=== PATIENT | male | born 1960 | race Caucasian/White ===

== ENCOUNTER 2022-07-01 11:24 | Day surgery (SDC) | payer OTHER, SELFPAY ==
[2022-07-01 11:52] VITALS: BMI 27.8
[2022-07-01 12:07] VITALS: BP 168/99; PULSE 77; RESP 17; TEMP 36; O2SAT 97
--- NOTE | 2022-07-01 12:52 | P.CONAN_ITS ---
HPI - Anesthesia Eval Consult details Narrative: 61 yr oldheavy smoker and etoh ( 12 pack a day on weekends) for upper endo plus colon PMFSH Past Medical History Medical History (Updated 06/28/22 @ 14:28 by Irma Poon RN) GERD (gastroesophageal reflux disease) Family History Family history of problems with anesthesia: No Surgical History Surgical History (Updated 06/28/22 @ 14:28 by Irma Poon RN) History of appendectomy History of surgery on lower extremity History of Problems with Anesthesia: No Social History Social History Patient Tobacco Use Status: Current everyday Tobacco user Cigarette Packs Per Day: 1 Cigarettes Per Day: 20.0 Use of substances other than those prescribed or required for medical reasons: No Advance Directives: No Advance Directives Information Provided: Yes Meds Allergies Allergy/AdvReac Type Severity Reaction Status Date / Time No Known Allergies Allergy Verified 06/28/22 14:27 Active Medications: Current Medications Sodium Biphosphate/Sodium Phosphate (Sodium Phosphate,[place]-Dibasic 133 Ml Enema) 133 ml TN ONCE PRN PRN Reason: Poor Colonoscopy Prep Results Home Medications Medication Instructions Recorded Confirmed Last Taken Type famotidine 20 mg tablet (Pepcid) 20 mg PO DAILY 06/28/22 06/28/22 Unknown History Exam Exam Date and Time: July 01, 2022 1252 Height,Weight and Vital Signs: Height 5 ft 11 in Weight 90.718 kg Last Vital Signs Temp 96.8 F 07/01/22 12:07 Pulse 77 07/01/22 12:07 Resp 17 07/01/22 12:07 BP 168/99 H 07/01/22 12:07 Pulse Ox 97 07/01/22 12:07 O2 Del Method Room Air 07/01/22 12:07 Airway Mallampati Class: II TM Dist: >3cm Neck ROM: Full Heart: rrr Lungs: cta Assessment and Plan Assessment Anesthesia Assessment: Anesthesia Plan Discussed and Chart Reviewed Final Anesthetic Review Family History of Problems with Anesthesia: No History of Problems with Anesthesia: No NPO: Yes ASA Class: III Final Preanesthetic Review: No Changes in Pt Med Stat, Meds/Allgs Chart Reviewed, Consent Obtained/Reviewed and Anes Risks/Benef Reviewed Patient Risk: Intermediate Procedure Risk: Intermediate Anesthetic Plan Anesthetic Plan: MAC: Disposition: Standard PACU
[2022-07-01 14:15] VITALS: BP 125/72; PULSE 74; RESP 16; TEMP 36.3; O2SAT 97
--- NOTE | 2022-07-01 14:23 | P.BOP_ITS ---
Brief Operative Note Date of Service: 07/01/22 Pre-op diagnosis: GERD, Screening Post-op diagnosis: other (Hiatal hernia, R/O Garcia's, Cecal polyp) Procedure: EGD with biopsies, Colonoscopy to the cecum with biopsy/removal of colon polyp Surgeon: Luis Siddiqui Anesthesia: MAC Was an Scientific Technical Writer used for this Procedure?: No Estimated blood loss (mL): 2.0 Pathology: other (A. EG Junction at 40cm B. Cecal polyp) Condition: stable Disposition: PACU
[2022-07-01 14:30] VITALS: BP 144/91; PULSE 68; RESP 16; TEMP 36.3; O2SAT 98
--- NOTE | 2022-07-01 15:47 | OP_ITS ---
DATE OF SERVICE: 07/01/2022 SURGEON: Luis Siddiqui MD INDICATIONS: The patient presents for evaluation of gastroesophageal reflux and colorectal cancer screening. Full consent has been obtained from him for this, including risks of bleeding and perforation. PREOPERATIVE DIAGNOSIS: POSTOPERATIVE DIAGNOSIS: PROCEDURE PERFORMED: Esophagogastroduodenoscopy with biopsies and colonoscopy to the cecum with biopsy and removal of polyp. ESTIMATED BLOOD LOSS: COMPLICATIONS: ANESTHESIA: Monitored anesthesia care. ASSISTANTS: SPECIMENS: PREOPERATIVE DIAGNOSES: Gastroesophageal reflux and colorectal cancer screening. PREOPERATIVE DIAGNOSES: Gastroesophageal reflux and colorectal cancer screening, hiatal hernia, rule out Garcia's esophagus, colon polyp, diverticulosis and internal hemorrhoids. DESCRIPTION OF PROCEDURE: The patient was placed in the left lateral decubitus position. The Olympus video gastroscope was passed in the posterior oropharynx and upper esophagus under direct vision. The scope was passed slowly to the distal esophagus. The gastroesophageal junction appeared at 40 cm. Extending from this for less than 1 cm were areas of probable Garcia's mucosa without any overlying inflammation nor lesions. There was a small hiatal hernia noted. The scope was advanced to the pylorus and the duodenum was cannulated at the descending portion. The duodenum including the bulb appeared normal without mass or ulceration. The scope was withdrawn back in the stomach. There was good peristalsis. The gastric antrum and body appeared normal with good peristalsis. Scope was retroflexed visualizing the proximal stomach carefully which appeared normal, without any sign of mass or ulceration. The scope was straightened and withdrawn back in the esophagus. Multiple biopsies were obtained at the EG junction at 40 cm. Proximal to this, the esophageal mucosa appeared normal. The scope was withdrawn from the patient. He was turned around for the colonoscopy. The digital rectal exam revealed no abnormalities. The Olympus video pediatric colonoscope was entered into the rectum and advanced easily to the cecum. Once in the cecum, after copious irrigation and suctioning, I did visualize cecal pouch with appendiceal orifice and normal-appearing ileocecal valve. There was transillumination of light deep in the lower quadrant. The entire cecum was ultimately well visualized and appeared normal other than an approximately 4 mm polyp which was biopsied and completely removed with cold biopsy forceps. The scope was then slowly withdrawn assessing all mucosal surface carefully. Preparation in the majority of the colon was very good, but there were other areas, particularly in the left colon, where there was some residual liquid stool. He did admit to having had a chicken sandwich last evening after the bowel prep. I did not visualize any other polyps, colitis, nor angiodysplasia. I did spend a long time irrigating and suctioning. There was a mild amount of sigmoid diverticulosis. In the rectum, scope was retroflexed visualizing internal hemorrhoids, but no other pathology. The rectal mucosa appeared normal. The scope was straightened and withdrawn from the patient. He tolerated the both procedures well and was returned to the recovery area in stable condition. IMPRESSION: 1. Hiatal hernia, gastroesophageal reflux, rule out Garcia's esophagus. 2. Small colon polyp. 3. Somewhat limited bowel prep. 4. Diverticulosis. 5. Internal hemorrhoids. PLAN: The results of the biopsies will be checked. I would recommend a repeat colonoscopy in 5 years even if the polyp is not a tubular adenoma given the somewhat limited prep. He was advised to continue his current management of Pepcid that is working well for him and he is not having any significant heartburn. I do not think he needs to be on a PPI at this point given no sign of any esophagitis. If the upper endoscopy biopsies do show Garcia's esophagus without dysplasia, I would recommend a followup endoscopy in three years as well. This has all been discussed with his . He was advised not to use any aspirin or NSAIDs for 1 week. ADDENDUM: Of note, speaking with the patient after the procedure, he does have lot of heartburn, despite being on the daily Pepcid. Given the upper endoscopy findings and his continued smoking and drinking, I did recommend that he start omeprazole 20 mg daily and have given him a prescription for that. I did advise him to stay on that correction. This has all been discussed with this as well. MD GISELL Salguero/CAROL ANN / [id number] JHONY
== END 2022-07-01 14:57 | disposition home or self-care (01) ==
PROVIDERS: PCP Family Medicine; Visit Provider Internal Medicine
PROC: (CPT 45380; principal; 2022-07-01 12:40)
DX: Z12.11 Encounter for screening for malignant neoplasm of colon (principal); D12.0 Benign neoplasm of cecum; K57.30 Diverticulosis of large intestine without perforation or abscess without bleeding; K64.8 Other hemorrhoids; K21.9 Gastro-esophageal reflux disease without esophagitis; K44.9 Diaphragmatic hernia without obstruction or gangrene; Z79.899 Other long term (current) drug therapy; F17.210 Nicotine dependence, cigarettes, uncomplicated
CPT/HCPCS: 45380; 43239; 88305

== ENCOUNTER 2023-10-13 08:37 | Emergency (ER) | payer BC, SELFPAY ==
--- NOTE | ~2023-10-13 | CT_ITS ---
EXAMINATION: CT ABDOMEN AND PELVIS WITHOUT CONTRAST CLINICAL INFORMATION: Retention , flank pain COMPARISON: None available. TECHNIQUE: Multidetector volumetric imaging was performed from the superior aspect of the liver through the pubic symphysis. Sagittal and coronal reformatted images were obtained on the technologist's workstation. This CT examination was performed using dose optimization techniques as appropriate, variously including the following: *Automated exposure control *Adjustment of mA and/or kV according to patient size (this includes techniques or standardized protocols for targeted exams where dose is matched to indication/reason for exam; i.e. extremities or head) *Use of iterative reconstruction technique DLP: 584 mGy-cm FINDINGS: LUNG BASES: Some mild emphysematous changes are seen at the lung bases with bibasilar scarring. LIVER, GALLBLADDER, AND BILIARY TREE: The liver is mildly enlarged at 17.5 cm. No focal hepatic lesion or biliary ductal dilatation is present. The gallbladder is unremarkable with no evidence of radiopaque gallstones, gallbladder wall thickening, or obvious pericholecystic inflammatory changes. PANCREAS: Unremarkable. SPLEEN: Unremarkable. ADRENAL GLANDS: Unremarkable. KIDNEYS AND URETERS: The kidneys are normal in size, shape, and attenuation multiple punctate nonobstructing renal calculi are seen bilaterally with the largest measuring 4 mm at the right lower pole.. No hydronephrosis, hydroureter, or calculi seen. No perinephric stranding. A benign left mid renal 2.2 cm Bosniak class I renal cyst is noted which requires no additional imaging or follow up. There is also a small poorly seen Bosniak class II right upper pole cyst measuring about 1.3 cm with some mural calcification or milk of calcium which also requires no additional imaging or follow-up (3:25). No solid renal masses are seen. BLADDER: The bladder is empty and contains a Glaser catheter. There is a 1 x 1.4 cm stones seen in the bladder on the right. GASTROINTESTINAL TRACT: A tiny hiatal hernia is present. There is colonic diverticulosis most prominent in the sigmoid without evidence of diverticulitis The small and large bowel are unremarkable. No evidence of appendicitis. ABDOMINAL WALL: There is a small left inguinal hernia seen containing only fat. Tiny periumbilical hernia seen containing only fat. LYMPH NODES: No retroperitoneal lymphadenopathy. VASCULAR: Unremarkable. PELVIC VISCERA: There is mild BPH. Seminal vesicles appear normal OSSEOUS STRUCTURES: Degenerative changes are seen in the spine most marked from L4 through S1. There is intramedullary wendy and screw present in the left femur. CT/CT abdomen pelvis wo IV con IMPRESSION: 1. Bilateral nonobstructing renal calculi. 2. Bladder stone. 3. Other incidental findings as described above. Fleischner guidelines were followed.
[2023-10-13 08:44] VITALS: BP 165/100; PULSE 83; RESP 18; TEMP 36.5; O2SAT 96; BMI 26.4
--- NOTE | 2023-10-13 08:51 | ED_ITS ---
HPI - Male Genitourinary General Chief complaint: Urogenital-Male Stated complaint: hasnt been able to urinate x1day Time Seen by Provider: 10/13/23 08:40 Source: patient, family and old records reviewed Mode of arrival: ambulatory Limitations: no limitations History of Present Illness ED Provider: KENNEDY SHAY Narrative: 63 yo male with PMH of GERD no prior BPH here with c/o urinary retention and dribbling x 2 days. This has never happened before. He feels full and is uncomfortable. Cannot think of precipitating event or medication. No fevers n/v/d. He has no had kidney stones before. MD Complaint: other (urinary retention) Onset (ago): day(s) (2) Duration: constant Location: penis Severity: moderate Quality: dull Relieving factors: urination Exacerbating factors: none Associated symptoms: Reports urinary retention Related Data Home Medications ?Medication ?Instructions ?Recorded ?Confirmed famotidine 20 mg tablet (Pepcid) 20 mg PO DAILY 06/28/22 06/28/22 Previous Rx's ?Medication ?Instructions ?Recorded cefuroxime axetil 500 mg tablet 500 mg PO BID 7 days #14 tabs 10/13/23 Allergies Allergy/AdvReac Type Severity Reaction Status Date / Time No Known Allergies Allergy Verified 10/13/23 08:48 Review of Systems 2 Review of Systems: Constitutional : No Weight loss, No Fever, No Chills ENT/Mouth : No sore throat, No Rhinorrhea Eyes: No Swelling, No Redness Cardiovascular : No Chest Pain, No SOB, No Edema Respiratory : No Cough, No Sputum, No Wheezing Gastrointestinal : no Nausea, no Vomiting, no Diarrhea, positive abdominal Pain, No Hematochezia, No Melena Genitourinary : No Dysuria, No Urinary Frequency, No Hematuria, No Urgency, pos retention Musculoskeletal : No joint pain, No Myalgias, No Joint Swelling Skin : No Skin Lesions, No rash Neuro : No Weakness, No Numbness, No Dizziness, No Headache Psych : No Anxiety/Panic, No Depression All other systems reviewed and are negative. [facility] Past Medical History Attestation statement: The following information was validated with the patient. Source: old records reviewed Medical History GERD (gastroesophageal reflux disease) Surgical History History of surgery on lower extremity History of appendectomy Social History Social History Alcohol intake: current Alcohol intake frequency: a few times a week Patient Tobacco Use Status: Current everyday Tobacco user Cigarette Packs Per Day: 1 Cigarettes Per Day: 20.0 Smoked in Last 30 Days: Yes Use of substances other than those prescribed or required for medical reasons: No Advance Directives: No Advance Directives Information Provided: Yes Physical Exam 2 Vital Signs: Vital Signs: Last Vital Signs Temp 97.7 F 10/13/23 08:44 Pulse 81 10/13/23 10:19 Resp 16 10/13/23 10:19 BP 143/94 H 10/13/23 10:19 Pulse Ox 97 10/13/23 10:19 O2 Del Method Room Air 10/13/23 10:19 BMI result Body Mass Index 26.4 Appearance: Alert. Oriented X3. No acute distress. Eyes: Pupils equal, round and reactive to light. ENT: Pharynx normal. Neck: Normal inspection. Neck supple. CVS: Normal heart rate and rhythm. Pulses normal. Respiratory: No respiratory distress. Breath sounds normal. Abdomen: Soft and full in suprapubi area with ttp Skin: Skin warm and dry. Normal skin color. Normal skin turgor. Extremities: No lower extremity edema. No calf ttp Neuro: Oriented X 3. No motor deficit. No sensory deficit. Medications Administered Discontinued Medications Generic Name Dose Route Start Last Admin Trade Name Freq PRN Reason Stop Dose Admin Lidocaine HCl 10 ml 10/13/23 08:41 10/13/23 09:14 Lidocaine Hcl 2 % Urojet 10 Ml Jel.Pf.Brooks TOPICAL 10/13/23 08:42 Not Given ONCE ONE Medical Decision Making Medical Decision Making MDM Narrative: 63 yo male with no sig PMH here with c/o suprapubic distention and unable to urinate x 2 days no fevers n/v/d he denies renal colic or known BPH at this time labs, UA, CT scan for mass, kline placement Differential Diagnosis Differential Diagnoses: The differential diagnosis associated with the presentation includes mass, retention, renal colic Admission/Observation Consideration of admission/observation: Escalation of care including admission/observation considered stable for DC at this time bladder stone noted will DC out on abx given stone and referral to urology Lab Data MDM Lab Attestation statement: I reviewed the patient's lab results. 10/13/23 09:23 10/13/23 09:23 Labs: Lab Results 10/13/23 Range/Units 09:23 WBC 7.6 (4.8-10.8) X10*3/uL RBC 4.58 L (4.60-5.80) X10*6/uL Hgb 14.7 (14.0-18.0) g/dl Hct 42.7 (42.0-52.0) % MCV 93.2 (80.0-98.0) fL MCH 32.1 (27.0-33.0) pg MCHC 34.4 (31.0-36.0) g/dl RDW 13.1 (11.0-16.0) % Plt Count 299 (160-400) X10*3/uL MPV 9.3 L (9.4-12.4) fL Immature Gran % (Auto) 0.3 (0.0-0.4) % Neut % (Auto) 68.9 (45-73) % Lymph % (Auto) 19.8 L (20-40) % [place] % (Auto) 7.4 (2-11) % Eos % (Auto) 3.2 (0-4) % Baso % (Auto) 0.4 (0-2) % Lymph # (Auto) 1.5 (1.2-4.9) X10*3/uL [place] # (Auto) 0.6 (0.1-1.2) X10*3/uL Eos # (Auto) 0.2 (0.0-0.4) X10*3/uL Baso # (Auto) 0.0 (0.0-0.2) X10*3/uL Abs Immat Gran (auto) 0.02 (0.00-0.03) X10*3/uL Absolute Neuts (auto) 5.3 (2.0-8.3) x10*3/uL Absolute Nucleated RBC 0.000 (0.0-0.012) X10*3/uL Nucleated RBC % (auto) 0.0 (0.0-0.2) /100WBC Sodium 140 (135-145) mmol/L Potassium 4.0 (3.3-5.1) mmol/L Chloride 110 H (96-108) mmol/L Carbon Dioxide 24 (22-29) mmol/L Anion Gap 10 L (12-20) BUN 16 (9-16) mg/dL Creatinine 0.91 (0.5-1.4) mg/dL Estim Creat Clear Calc 99.1 Estimated GFR > 60 Random Glucose 109 (60-115) mg/dL Calcium 9.0 (8.4-10.2) mg/dL Total Bilirubin 0.4 (0.0-1.0) mg/dL Direct Bilirubin 0.1 (0.0-0.5) mg/dL AST 45 H (5-37) U/L ALT 70 H (0-40) U/L Alkaline Phosphatase 95 (39-117) U/L Total Protein 8.0 (6.5-8.0) g/dL Albumin 4.2 (3.5-5.0) g/dL Urine Color Yellow Urine Appearance Clear Urine pH 6.5 (5.0-9.0) Ur Specific [place] 1.015 (1.005-1.025) Urine Protein Negative (Neg-Trace) mg/dL Urine Glucose (UA) Negative (Negative) mg/dL Urine Ketones Negative (Negative) mg/dL Urine Blood Trace H (Negative) Urine Nitrite Negative (Negative) Ur Leukocyte Esterase Negative (Negative) Urine RBC 6-10 H (0-2) /HPF Urine WBC 0-5 (0-5) /HPF Ur Squamous Epith Cells 0-2 (0-2) /HPF Urine Bacteria None Seen (None Seen) Hyaline Casts 0-2 (0-2) /LPF Independent Interpretation I performed an independent interpretation of an: CT Scan Radiology Impression Discussion of test interpretation with radiology: I have reviewed the radiologist's reading. Independent Historian Clinical information obtained from an independent historian. History obtained from or confirmed by: Spouse External Record Review External record reviewed: Outpatient record Prescription Management I considered prescription management with: Antibiotic Discharge Plan Discharge Clinical Impression: Acute retention of urine, Bladder calculi Patient Disposition: Home, Self-Care Instructions: Kline Catheter Placement and Care (ED) Additional Instructions: follow up with urologist in the next 2 weeks return for pain, fevers, vomiting, catheter blocked, large blood clots or any other concerns there is a stone in the bladder that needs to be addressed by urologist given this you will be started on antibiotics to prevent infection Prescriptions: New cefuroxime axetil 500 mg tablet 500 mg PO BID 7 Days Qty: 14 0RF No Action famotidine [Pepcid] 20 mg Tablet 20 mg PO DAILY Print Language: Bhutanese
[2023-10-13 09:05] VITALS: BP 133/88; PULSE 80; RESP 16; O2SAT 96
[2023-10-13 09:30] LABS: MANUAL DIFF FLAG NO
[2023-10-13 09:32] LABS: Basophils Percent Auto 0.4 % (0-2); Eosinophils Absolute Auto 0.2 X10*3/uL (0.0-0.4); Eosinophils Percent Auto 3.2 % (0-4); Hematocrit 42.7 % (42.0-52.0); Hemoglobin 14.7 g/dl (14.0-18.0); Imm Gran Abs Auto 0.02 X10*3/uL (0.00-0.03); Imm Gran Pct Auto 0.3 % (0.0-0.4); Lymphocytes Absolute Auto 1.5 X10*3/uL (1.2-4.9); Lymphocytes Percent Auto 19.8 % (20-40); Mean Corpuscular HGB Conc 34.4 g/dl (31.0-36.0); Mean Corpuscular Hemoglobin 32.1 pg (27.0-33.0); Mean Corpuscular Volume 93.2 fL (80.0-98.0); Mean Platelet Volume 9.3 fL (9.4-12.4); Monocytes Absolute Auto 0.6 X10*3/uL (0.1-1.2); Monocytes Percent Auto 7.4 % (2-11); Neutrophils Absolute Auto 5.3 x10*3/uL (2.0-8.3); Neutrophils Percent Auto 68.9 % (45-73); Platelet Count 299 X10*3/uL (160-400); Red Blood Count 4.58 X10*6/uL (4.60-5.80); Red Cell Distribution Width 13.1 % (11.0-16.0); White Blood Count 7.6 X10*3/uL (4.8-10.8)
[2023-10-13 09:33] LABS: Appearance Urine Clear; Color Urine Yellow; Glucose Urine UA Negative (Negative); Leukocyte Esterase Urine Negative (Negative); Nitrite Urine Negative (Negative); PH 6.5 (5.0-9.0); Specific Gravity - Urine 1.015 (1.005-1.025); UMIC TRIGGER UACC YES; Urine Blood Trace (Negative); Urine Ketones Negative (Negative); Urine Protein Negative (Neg-Trace)
[2023-10-13 09:38] LABS: Bacteria Urine None Seen (None Seen); Hyaline Casts Urine 0-2 /LPF (0-2); Squamous Epithelial Cell Urine 0-2 /HPF (0-2); WBC Urine 0-5 /HPF (0-5)
[2023-10-13 09:48] LABS: Alanine Aminotransferase 70 U/L (0-40); Albumin Level 4.2 g/dL (3.5-5.0); Alkaline Phosphatase 95 U/L (39-117); Anion Gap 10 (12-20); Aspartate Amino Transferase 45 U/L (5-37); Bilirubin Direct 0.1 mg/dL (0.0-0.5); Bilirubin Total 0.4 mg/dL (0.0-1.0); Blood Urea Nitrogen 16 mg/dL (9-16); Carbon Dioxide 24 mmol/L (22-29); Chloride 110 mmol/L (96-108); Creatinine Clr Calc Pharmacy 99.1; Estimated Glomerular Filt Rate > 60; Glucose Random 109 mg/dL (60-115); Sodium 140 mmol/L (135-145)
[2023-10-13 10:19] VITALS: BP 143/94; PULSE 81; RESP 16; O2SAT 97
[2023-10-13 11:51] VITALS: BP 143/94; PULSE 81; RESP 16; TEMP -17.7; TEMP 0; O2SAT 97
== END 2023-10-13 11:52 | disposition home or self-care (01) ==
PROVIDERS: Emergency Provider Emergency Medicine
DX: R33.9 Retention of urine, unspecified (principal); N21.0 Calculus in bladder; F17.210 Nicotine dependence, cigarettes, uncomplicated; Z79.899 Other long term (current) drug therapy
CPT/HCPCS: 36415; 51702; 51798; 74176; 80048; 80076; 81001; 85025; 99284

== ENCOUNTER 2024-04-14 08:38 | Emergency (ER) | payer BC, SELFPAY ==
[2024-04-14 09:05] VITALS: BP 179/110; PULSE 76; RESP 20; TEMP 36.4; O2SAT 98; BMI 28.6
[2024-04-14 09:28] LABS: MANUAL DIFF FLAG NO
[2024-04-14 09:32] LABS: Basophils Absolute Auto 0.1 X10*3/uL (0.0-0.2); Basophils Percent Auto 0.8 % (0-2); Eosinophils Absolute Auto 0.4 X10*3/uL (0.0-0.4); Eosinophils Percent Auto 4.8 % (0-4); Hematocrit 43.3 % (42.0-52.0); Hemoglobin 14.3 g/dl (14.0-18.0); Imm Gran Abs Auto 0.02 X10*3/uL (0.00-0.03); Imm Gran Pct Auto 0.3 % (0.0-0.4); Lymphocytes Absolute Auto 1.9 X10*3/uL (1.2-4.9); Lymphocytes Percent Auto 26.4 % (20-40); Mean Corpuscular Volume 93.7 fL (80.0-98.0); Mean Platelet Volume 9.7 fL (9.4-12.4); Monocytes Absolute Auto 0.6 X10*3/uL (0.1-1.2); Monocytes Percent Auto 8.6 % (2-11); Neutrophils Absolute Auto 4.4 x10*3/uL (2.0-8.3); Neutrophils Percent Auto 59.1 % (45-73); Platelet Count 253 X10*3/uL (160-400); Red Blood Count 4.62 X10*6/uL (4.60-5.80); Red Cell Distribution Width 12.8 % (11.0-16.0); White Blood Count 7.4 X10*3/uL (4.8-10.8)
[2024-04-14 09:49] LABS: Alkaline Phosphatase 100 U/L (39-117); Anion Gap 11 (12-20); Aspartate Amino Transferase 38 U/L (5-37); Bilirubin Direct 0.2 mg/dL (0.0-0.5); Bilirubin Total 0.4 mg/dL (0.0-1.0); Blood Urea Nitrogen 17 mg/dL (9-16); Calcium 8.5 mg/dL (8.4-10.2); Carbon Dioxide 22 mmol/L (22-29); Chloride 110 mmol/L (96-108); Creatinine Clr Calc Pharmacy 93.9; Estimated Glomerular Filt Rate > 60; Glucose Random 100 mg/dL (60-115); Lipase 31 U/L (8-78); Potassium 4.5 mmol/L (3.3-5.1); Sodium 138 mmol/L (135-145); Total Protein 8.1 g/dL (6.5-8.0)
[2024-04-14 10:04] LABS: Alanine Aminotransferase 53 U/L (0-40)
--- NOTE | 2024-04-14 13:15 | ED_ITS ---
HPI - Abdominal Pain General Chief Complaint: Abdominal Pain Stated Complaint: abd pain Time Seen by Provider: 04/14/24 12:34 Source: patient Limitations: no limitations and other (poor historian) History of Present Illness ED Provider: Vashti Glaser PA-C HPI narrative: 63-year-old male with a history of hepatitis-C and GERD who presents with a right-sided abdominal pain x4 days. Pain over right mid abdomen, is nonradiating, unable to describe the nature of his discomfort. Associated abdominal distention. Denies postprandial symptoms, nausea, vomiting, fever, diarrhea, or constipation. Denies inability to pass flatus. Denies history of kidney stones, dysuria or hematuria. Related Data Home Medications ?Medication ?Instructions ?Recorded ?Confirmed famotidine 20 mg tablet (Pepcid) 20 mg PO DAILY 06/28/22 06/28/22 Previous Rx's ?Medication ?Instructions ?Recorded cefuroxime axetil 500 mg tablet 500 mg PO BID 7 days #14 tabs 10/13/23 Allergies Allergy/AdvReac Type Severity Reaction Status Date / Time No Known Allergies Allergy Verified 04/14/24 09:08 Review of Systems Review of Systems Yes all other systems are reviewed and are negative Constitutional: Denies fatigue and Denies fever(s) Cardiovascular: Denies chest pain and Denies dyspnea Respiratory: Denies cough and Denies dyspnea Gastrointestinal: Reports abdominal pain, Denies constipation, Denies diarrhea, Denies nausea and Denies vomiting Genitourinary: Denies hematuria and Denies dysuria Endocrine: Denies fatigue PMFSH Past Medical History Attestation statement: The following information was validated with the patient. Medical History GERD (gastroesophageal reflux disease) Surgical History History of surgery on lower extremity History of appendectomy Social History Social History Alcohol intake: current Alcohol intake frequency: a few times a week Patient Tobacco Use Status: Current everyday Tobacco user Cigarette Packs Per Day: 1 Cigarettes Per Day: 20.0 Advance Directives: No Advance Directives Information Provided: Yes Do you have a plan to hurt others: No Plan Physical Exam ED Vital Signs: Vital Signs - 24 hr 04/14/24 09:05 04/14/24 13:44 Temperature 97.5 F 97.6 F Pulse Rate 76 75 Respiratory Rate 20 16 Blood Pressure 179/110 H 166/106 H Pulse Oximetry 98 96 Oxygen Delivery Method Room Air Room Air BMI result Body Mass Index 28.6 Const Other: Alert Orientation/consciousness: patient oriented x3 Resp Effort & Inspection: normal respiratory effort Cardio Other: Normal peripheral perfusion GI Other: Abdomen is distended, moderate tenderness to right mid abdomen with mild involuntary guarding Skin Other: Warm dry no rash Neuro General: patient oriented x3, gait normal, no focal motor deficits and CN's II- XI intact bilaterally Psych Other: Cooperative Course Reevaluation(s) Reevaluation #1: Patient is eager to eat, his brought him food, he is declining the CT scan and wants to leave Medical Decision Making Medical Decision Making MDM Narrative: 63-year-old male with a history of hepatitis-C and GERD who presents with a right-sided abdominal pain x4 days. Pain over right mid abdomen, is nonradiating, unable to describe the nature of his discomfort. Associated abdominal distention. Denies postprandial symptoms, nausea, vomiting, fever, diarrhea, or constipation. Denies inability to pass flatus. Denies history of kidney stones, dysuria or hematuria. Problem: The hepatitis-C History: Per patient I have considered the following differential diagnoses: Biliary colic, cholecystitis, renal colic, bowel obstruction Plan: Patient here with focal abdominal discomfort without active GI or symptoms. Given distribution I did consider renal colic, however he has no history of stones, pain is not within the flank it is within the abdomen, he has no hematuria or dysuria. Thought about biliary colic versus cholecystitis, however he is not having postprandial symptoms. His LFTs are at baseline, obtaining a CT scan. Considering bowel obstruction given abdominal distention, however he denies constipation, he is passing gas, and he is not actively vomiting. When I perform the CT scan we will have the patient drink oral contrast as well. Giving IV fluid and Toradol I have independently reviewed the following tests: Labs: No leukocytosis, not anemic, no electrolyte abnormality, LFTs are at baseline Lab Data 04/14/24 09:23 04/14/24 09:23 Labs: Lab Results 04/14/24 Range/Units 09:23 WBC 7.4 (4.8-10.8) X10*3/uL RBC 4.62 (4.60-5.80) X10*6/uL Hgb 14.3 (14.0-18.0) g/dl Hct 43.3 (42.0-52.0) % MCV 93.7 (80.0-98.0) fL MCH 31.0 (27.0-33.0) pg MCHC 33.0 (31.0-36.0) g/dl RDW 12.8 (11.0-16.0) % Plt Count 253 (160-400) X10*3/uL MPV 9.7 (9.4-12.4) fL Immature Gran % (Auto) 0.3 (0.0-0.4) % Neut % (Auto) 59.1 (45-73) % Lymph % (Auto) 26.4 (20-40) % [place] % (Auto) 8.6 (2-11) % Eos % (Auto) 4.8 H (0-4) % Baso % (Auto) 0.8 (0-2) % Lymph # (Auto) 1.9 (1.2-4.9) X10*3/uL [place] # (Auto) 0.6 (0.1-1.2) X10*3/uL Eos # (Auto) 0.4 (0.0-0.4) X10*3/uL Baso # (Auto) 0.1 (0.0-0.2) X10*3/uL Abs Immat Gran (auto) 0.02 (0.00-0.03) X10*3/uL Absolute Neuts (auto) 4.4 (2.0-8.3) x10*3/uL Absolute Nucleated RBC 0.000 (0.0-0.012) X10*3/uL Nucleated RBC % (auto) 0.0 (0.0-0.2) /100WBC Sodium 138 (135-145) mmol/L Potassium 4.5 (3.3-5.1) mmol/L Chloride 110 H (96-108) mmol/L Carbon Dioxide 22 (22-29) mmol/L Anion Gap 11 L (12-20) BUN 17 H (9-16) mg/dL Creatinine 0.99 (0.5-1.4) mg/dL Estim Creat Clear Calc 93.9 Estimated GFR > 60 Random Glucose 100 (60-115) mg/dL Calcium 8.5 (8.4-10.2) mg/dL Total Bilirubin 0.4 (0.0-1.0) mg/dL Direct Bilirubin 0.2 (0.0-0.5) mg/dL AST 38 H (5-37) U/L ALT 53 H (0-40) U/L Alkaline Phosphatase 100 (39-117) U/L Total Protein 8.1 H (6.5-8.0) g/dL Albumin 4.0 (3.5-5.0) g/dL Lipase 31 (8-78) U/L Medications Administered Discontinued Medications Generic Name Dose Route Start Last Admin Trade Name Freq PRN Reason Stop Dose Admin Diatrizoate Meglum/Diatrizoate Sod 30 ml 04/14/24 14:55 04/14/24 14:55 Diatrizoate Meglumine, Sodium 30 Ml Solution PO 04/14/24 14:56 30 ml ONCE ONE Administration Ketorolac Tromethamine 15 mg 04/14/24 13:19 04/14/24 13:45 Ketorolac Tromethamine 15 Mg/Ml Vial IVPUSH 04/14/24 13:20 15 mg ONCE ONE Administration Discharge Plan Discharge Clinical Impression: Abdominal pain Patient Disposition: Home, Self-Care Additional Instructions: All of your screening labs were at your baseline. You declined the CT scan of your abdomen. You can return at any time to complete your assessment. Follow up with your primary care provider as needed. Prescriptions: No Action famotidine [Pepcid] 20 mg Tablet 20 mg PO DAILY cefuroxime axetil 500 mg tablet 500 mg PO BID 7 Days Qty: 14 0RF Print Language: German
[2024-04-14 13:44] VITALS: BP 166/106; PULSE 75; RESP 16; TEMP 36.4; O2SAT 96
[2024-04-14] MEDS: Ketorolac Tromethamine 15 MG/ML VIAL IVPUSH (13:45)
[2024-04-14] MEDS: Diatrizoate Meglumine, Sodium 30 ML SOLUTION PO (14:55)
== END 2024-04-14 17:55 | disposition home or self-care (01) ==
PROVIDERS: Emergency Provider Emergency Medicine; PCP Family Medicine
DX: R10.9 Unspecified abdominal pain (principal); K21.9 Gastro-esophageal reflux disease without esophagitis; Z86.19 Personal history of other infectious and parasitic diseases; Z79.899 Other long term (current) drug therapy
CPT/HCPCS: 36415; 80048; 80076; 83690; 85025; 96374; 99284; J1885